=== PATIENT | male | born 1975 | race American Indian/Alaskan Native ===

== ENCOUNTER 2020-03-20 09:31 | Emergency (ER) | payer MEDICAID ==
[2020-03-20] MEDS ORDERED: ENOXAPARIN 30 MG/0.3 ML INJ SUB-Q ONE (11:31)
[2020-03-20] MEDS ORDERED: ONDANSETRON 4 MG/2 ML INJ IM ONE (11:31)
[2020-03-20] MEDS ORDERED: MORPHINE 4 MG/1 ML INJ IM ONE (11:31)
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
[2020-03-20 13:19] VITALS: BP 136/92
== END 2020-03-20 12:20 | disposition home or self-care (01) ==
LOC: ED 09:31
DX: G54.6 Phantom limb syndrome with pain (principal); F17.200 Nicotine dependence, unspecified, uncomplicated; F12.10 Cannabis abuse, uncomplicated; Z89.511 Acquired absence of right leg below knee
CPT/HCPCS: 96372; 99282; J1650; J2270; J2405

== ENCOUNTER 2020-03-26 13:57 | Emergency (ER) | payer MEDICAID ==
[2020-03-26 17:02] VITALS: BP 108/62
== END 2020-03-26 17:21 | disposition home or self-care (01) ==
LOC: ED 13:57
DX: G54.6 Phantom limb syndrome with pain (principal); F17.200 Nicotine dependence, unspecified, uncomplicated; F12.90 Cannabis use, unspecified, uncomplicated; Z98.890 Other specified postprocedural states; Z48.02 Encounter for removal of sutures; Z79.899 Other long term (current) drug therapy
CPT/HCPCS: 99282

== ENCOUNTER 2020-06-13 08:49 | Emergency (ER) | payer MEDICAID ==
[2020-06-13 09:02] VITALS: BP 120/78
[2020-06-13] MEDS ORDERED: GABAPENTIN 400 MG CAP PO ONE (10:15)
[2020-06-13] MEDS ORDERED: traMADol 50 MG TAB PO ONE (10:15)
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
== END 2020-06-13 11:15 | disposition home or self-care (01) ==
LOC: ED 08:49
DX: G54.6 Phantom limb syndrome with pain (principal); G89.29 Other chronic pain; F17.200 Nicotine dependence, unspecified, uncomplicated; F12.10 Cannabis abuse, uncomplicated; Z98.890 Other specified postprocedural states
CPT/HCPCS: 99282

== ENCOUNTER 2021-10-18 05:23 | Emergency (ER) | payer MEDICAID ==
--- NOTE | 2021-10-18 09:16 | Event Note ---
ED Screening Note Date of service: 10/18/21 Time: 09:15 ED Screening Note: 46-year-old male presented emerged department chief complaint of cough x3 days, nausea vomiting and pelvic pain. Patient has a history of pelvic fracture status post trauma. He has a history of right lower leg amputation status post trauma. He is not on any medications currently does not any known allergies medications. He reports since he has been coughing so much he has pain where he had surgery from his pelvic fractures. This initial assessment/diagnostic orders/clinical plan/treatment(s) is/are subject to change based on patients health status, clinical progression and re- assessment by fellow clinical providers in the ED. Further treatment and workup at subsequent clinical providers discretion. Patient/guardian urged not to elope from the ED as their condition may be serious if not clinically assessed and managed. Initial orders include: CBC, CMP, urinalysis, CT abdomen pelvis
--- NOTE | 2021-10-18 09:41 | XRay Report ---
CHEST 2 VIEWS INDICATION / CLINICAL INFORMATION: cough, congestion. COMPARISON: None available. FINDINGS: SUPPORT DEVICES: None. HEART / MEDIASTINUM: No significant abnormality. LUNGS / PLEURA: Mild hyperinflation airways No pneumothorax. ADDITIONAL FINDINGS: No significant additional findings. IMPRESSION: 1. No acute findings. Signer Name: Jann Barrow MD Signed: 10/18/2021 9:37 AM Workstation Name: [id number]
--- NOTE | 2021-10-18 10:14 | Cat Scan Report ---
CT abdomen pelvis wo con INDICATION / CLINICAL INFORMATION: pelvic pain, hx of pelvic fractures. TECHNIQUE: CT abdomen pelvis without contrast All CT scans at this location are performed using CT dose reductio n for ALARA by means of automated exposure control. COMPARISON: None available. FINDINGS: Abdomen and pelvis: The lower lungs are clear. The liver, gallbladder, spleen, pancreas adrenal glands and kidneys are unremarkable within the limit s of noncontrast technique. No free air or free fluid. No evidence of bowel obstruction. Fixation hardware along the anterior pelvic rim appears grossly intact without convincing evidence of hardware failure or loosening. There is prominent healed posttraumatic change involving the right an d left pubic symphysis. There appears to be some increased soft tissue density anterior to the anteri or pelvic fixation hardware however an adjacent streak artifact limits evaluation. Multiple fully thr eaded and distally threaded screw screws transfix the right SI joint/sacrum. The visualized urinary bladder is unremarkable. No free pelvic fluid is identified. IMPRESSION: 1. Grossly intact anterior pelvic fixation hardware without evidence of hardware failure. There does appear to be some increased soft tissue density just anterior to the pelvic fixation plate however ad jacent metallic streak artifact limits fine evaluation. This could be secondary to chronic posttrauma tic scarring/fibrosis. 2. No obvious drainable pelvic fluid collections within the limits of noncontrast technique. Signer Name: Edouard Guevara MD Signed: 10/18/2021 10:11 AM Workstation Name: [id number]
[2021-10-18 10:55] LABS: Basophils # (Auto) 0.1 K/mm3 (0.0-0.1); Basophils % (Auto) 1.1 % (0.0-1.8); Eosinophils % (Auto) 0.6 % (0.0-4.3); Hemoglobin 13.5 gm/dl (11.8-15.2); Lymphocytes % (Auto) 44.7 % (13.4-35.0); Mean Corpuscular HGB Conc 32 % (32-34); Mean Corpuscular Volume 92 fl (84-94); Monocytes # (Auto) 0.5 K/mm3 (0.0-0.8); Monocytes % (Auto) 10.4 % (0.0-7.3); Platelet Count 335 K/mm3 (140-440); Red Blood Count 4.57 M/mm3 (3.65-5.03)
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
[2021-10-18 11:18] LABS: Alanine Aminotransferase 14 units/L (7-56); Albumin 3.9 g/dL (3.9-5); Blood Urea Nitrogen 9 mg/dL (9-20); Calcium 9.2 mg/dL (8.4-10.2); Hemolysis Index 8
--- NOTE | 2021-10-18 11:19 | XRay Report ---
Left hand, 2 views HISTORY: Pain at first MCP joint. 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 Otherwise, no significant arthritis. The first MCP reema int appears preserved. There are no osseous erosions. No acute fracture or malalignment. No focal sof t tissue abnormality. Signer Name: Gerardo Parmar MD Signed: 10/18/2021 11:15 AM Workstation Name: [employer]
[2021-10-18 11:21] LABS: BUN/Creatinine Ratio 13
[2021-10-18 11:55] VITALS: BP 113/75
== END 2021-10-18 11:56 | disposition home or self-care (01) ==
LOC: ED 05:23
DX: B34.9 Viral infection, unspecified (principal); Z20.822 Contact with and (suspected) exposure to COVID-19; F17.200 Nicotine dependence, unspecified, uncomplicated; F12.90 Cannabis use, unspecified, uncomplicated
CPT/HCPCS: 36415; 71046; 74176; 80053; 83690; 85025; 99284

== ENCOUNTER 2022-06-05 23:02 | Emergency (ER) | payer MEDICAID ==
[2022-06-06 06:07] LABS: Basophils # (Auto) 0.1 K/mm3 (0.0-0.1); Basophils % (Auto) 1.2 % (0.0-1.8); Eosinophils # (Auto) 0.1 K/mm3 (0.0-0.4); Eosinophils % (Auto) 2.2 % (0.0-4.3); Hematocrit 37.9 % (35.5-45.6); Hemoglobin 13.1 gm/dl (11.8-15.2); Lymphocytes # (Auto) 2.6 K/mm3 (1.2-5.4); Lymphocytes % (Auto) 49.7 % (13.4-35.0); Mean Corpuscular HGB Conc 35 % (32-34); Mean Corpuscular Volume 93 fl (84-94); Monocytes # (Auto) 0.5 K/mm3 (0.0-0.8); Monocytes % (Auto) 9.4 % (0.0-7.3); Platelet Count 341 K/mm3 (140-440); Red Blood Count 4.08 M/mm3 (3.65-5.03)
[2022-06-06 06:29] LABS: BUN/Creatinine Ratio 14; Blood Urea Nitrogen 11 mg/dL (9-20); Calcium 9.2 mg/dL (8.4-10.2); Hemolysis Index 23
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
[2022-06-06 08:47] LABS: Alanine Aminotransferase 16 units/L (7-56); Bilirubin,Direct < 0.2 mg/dL (0-0.2)
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
[2022-06-06] MEDS: ZIPRASIDONE 40 MG CAP PO SCH ×2 (13:22→22:14)
[2022-06-06] MEDS: PREGABALIN 75 MG CAP PO SCH (13:22)
[2022-06-06] MEDS ORDERED: traZODone 50 MG TAB PO SCH (22:00)
[2022-06-06 22:43] LABS: Color,Urine Yellow (Yellow)
[2022-06-06 22:46] LABS: Mucus,Urine FEW /HPF
[2022-06-06 22:50] LABS: Amphetamine Screen,Urine Negative; Benzodiazepines Screen,Urine Negative; Cannabinoid Screen,Urine Negative; Methadone Screen,Urine Negative; Opiate Screen,Urine Negative
[2022-06-06 23:09] LABS: Cocaine Screen,Urine Positive
--- NOTE | 2022-06-07 09:11 | Progress Note ---
Subjective - Reason for Consult Consult date: 06/07/22 Reason for consult: SI/HI - Chief Complaint Chief complaint: The patient was seen today. He endorses feeling a lot better. He is laughing and is pleasant. The patient says he slept well. He now denies SI/HI or hallucinations. He is asking for more food. REVIEW OF SYSTEMS Constitutional: Negative for weight loss ENT: Negative for stridor Respiratory: Negative for cough or hemoptysis All other systems reviewed and are negative MENTAL STATUS EXAMINATION General Appearance and Behavior: Age appropriate, good hygiene, wearing appropriate clothes, calm, cooperative Cooperation: Cooperative Psychomotor Behavior: Psychomotor normal Mood: better Affect and affective range: congruent with stated mood Thought Process: goal directed Thought Content: SI/HI Speech: Normal tone and pace Suicidal Ideation: Denies Homicidal Ideation: Denies Hallucinations: Denies Delusions: None elicited Impulse Control: Limited Insight and Judgment: limited insight and poor judgment Memory: Limited Attention: attentive Orientation: a/o Assessment (1)Schizophrenia Current Visit: Yes Status: Acute Treatment Plan d/c 1013 Geodon 40mg po BID Lyrica 75mg po daily Medical: per primary Sitter: defer to primary Disposition: Do not recommend acute psychiatric inpatient treatment. The patient understands that if SI/HI are to re-occur he is to seek immediate assistance. The narrow fabric loom fixer to give safety plan and give the patient all necessary resources. The patient to follow up in 7 to 14 days with outpatient psych Will sign off. Thanks Case staffed with Dr. Malik Mental Status Exam - Vital signs Last Vital Signs Temp 98.6 F 06/06/22 23:31 Pulse 78 06/06/22 23:31 Resp 18 06/06/22 23:31 BP 101/63 06/06/22 23:31 Pulse Ox 100 06/06/22 23:31
[2022-06-07] MEDS: ZIPRASIDONE 40 MG CAP PO SCH (10:27)
[2022-06-07] MEDS: PREGABALIN 75 MG CAP PO SCH (10:27)
[2022-06-07 11:51] VITALS: BP 105/62
== END 2022-06-07 11:25 | disposition home or self-care (01) ==
LOC: ED 23:02
DX: R45.851 Suicidal ideations (principal); F20.9 Schizophrenia, unspecified; Z20.822 Contact with and (suspected) exposure to COVID-19; F17.200 Nicotine dependence, unspecified, uncomplicated
CPT/HCPCS: 36415; 80048; 80076; 80307; 81001; 85025; 99284; U0003; 80320; G0480